=== PATIENT | male | born 1990 | race Native Hawaiian/Other Pacific Islander ===

== ENCOUNTER 2017-09-27 16:37 | Emergency (ER) | payer OTHER ==
[~2017-09-27] VITALS: Ht 165.1 cm; Wt 72.6 kg
[2017-09-27] MEDS ORDERED: IBUPROFEN TABLET 200 MG TAB PO STA (17:32)
--- NOTE | 2017-09-27 18:02 | ED Cough/URI ---
General Chief Complaint: Fever-Adult/Adol Stated Complaint: FEVER Nursing Triage Note: C/O OF FEVER AND HEADACHE FOR 1 WEEK. 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, presents for dizziness and fever. He reports an occasional dry cough. His symptoms of been present for approximately 5 days. He taken Benadryl 50 mg every 6-8 hours to assist with the fever. He also reports increased stress related to school, however he is not open to discussing that or seeking mental health services at the [facility]. Allergies and Home Medications Allergies Coded Allergies: No Known Drug Allergies (Unverified , 09/27/17) Home Medications Amoxicillin 500 Mg Capsule, 500 MG PO Q8H Prescribed by: DAMARIS WILKINS on 09/27/17 3945 Patient Home Medication List Home Medication List Reviewed: Yes Review of Systems Constitutional: see HPI, chills, fever, malaise EENTM: see HPI, ear pain Gastrointestinal: no symptoms reported, see HPI All Other Systems Reviewed Negative Unless Noted: Yes Past Qpmriwt-Iwannw-Movrld Hx Past Med/Social Hx: Reviewed Nursing Past Med/Soc Hx Patient Social History Alcohol Use: Occasionally Uses Recreational Drug Use: No Smoking Status: Current Everyday Smoker Recent Foreign Travel: No Contact w/Someone Who Travel: No Recent Infectious Disease Expo: No Past Medical History Surgeries: No Respiratory: No Cardiac: No Neurological: No Genitourinary: No Gastrointestinal: No Endocrine: No HEENT: No Cancer: No Psychosocial: No Integumentary: No Physical Exam Vital Signs Vital Signs - First Documented 09/27/17 17:10 Temp 101.3 Pulse 128 Resp 18 B/P (MAP) 136/100 (112) Pulse Ox 97 O2 Delivery Room Air Capillary Refill : Less Than 3 Seconds General Appearance: WD/WN, no apparent distress Eyes: Bilateral Eye Normal Inspection, Bilateral Eye PERRL, Bilateral Eye EOMI HEENT: PERRL/EOMI, pharynx normal, TM abnormal (R), TM abnormal (L); No pharyngeal erythema, No tonsillar exudate Neck: non-tender, full range of motion, supple, normal inspection Respiratory: chest non-tender, lungs clear, normal breath sounds Cardiovascular: normal peripheral pulses, regular rate, rhythm, no murmur Gastrointestinal: normal bowel sounds, non tender Neurologic/Psychiatric: no motor/sensory deficits, alert, normal mood/affect, oriented x 3 Skin: normal color, warm/dry Progress/Results/Core Measures Suspected Sepsis Recent Fever Within 48 Hours: Yes Infection Criteria Present: Suspected New Infection New/Unexplained Altered Menta: No Sepsis Screen: Possible Sepsis Risk SIRS Temperature:101.3 Pulse: 128 Respiratory Rate: 18 Blood Pressure 136 /100 Mean: 112 Results/Orders My Orders Orders - DAMARIS WILKINS Ibuprofen Tablet (Motrin Tablet) (09/27/17 17:32) Vital Signs/I&O 09/27/17 17:10 Temp 101.3 Pulse 128 Resp 18 B/P (MAP) 136/100 (112) Pulse Ox 97 O2 Delivery Room Air Capillary Refill : Less Than 3 Seconds Blood Pressure Mean: 112 Progress Note : Time: 17:40 Progress Note Initial evaluation completed. Discharge planning and return precautions reviewed. 1810 Temp down to 100, pulse 92. Departure Impression Primary Impression: Fever Qualified Codes: R50.9 - Fever, unspecified Additional Impressions: Otitis media Qualified Codes: H66.003 - Acute suppurative otitis media without spontaneous rupture of ear drum, bilateral URI (upper respiratory infection) Qualified Codes: J06.9 - Acute upper respiratory infection, unspecified Disposition: 01 HOME, SELF-CARE Condition: Stable Departure-Patient Inst. Decision time for Depature: 17:55 Referrals: NO,LOCAL PHYSICIAN (PCP) Primary Care Physician Patient Instructions: Cough, Runny Nose, and the Common Cold (DC), Ear Infections (Otitis Media), Fever, Adult (DC) Add. Discharge Instructions: Alternate between ibuprofen 600 mg and Tylenol 650 mg every 4 hours for pain or fever Take antibiotic as prescribed. Follow-up at [facility] [place] if your symptoms are not improving. You may take [id number] meclizine 25 mg every 8 hours for the dizziness. Increase her water intake. Return to emergency department for urgent health care needs. All discharge instructions reviewed with patient and/or family. Voiced understanding. Scripts Amoxicillin (Amoxicillin) 500 Mg Capsule 500 MG PO Q8H, #21 CAP 0 Refills Prov: DAMARIS WILKINS 09/27/17 Copy Copies To 1: DANDY BERNARD MD, AMY ARNP September 27, 2017 18:02
[2017-09-27] MEDS ORDERED: AMOX500C2 PO (18:03)
[2017-09-27 18:09] VITALS: BP 130/82
== END 2017-09-27 18:20 | disposition home or self-care (01) ==
LOC: ER 16:39
DX: H66.93 Otitis media, unspecified, bilateral (principal); J06.9 Acute upper respiratory infection, unspecified; F17.200 Nicotine dependence, unspecified, uncomplicated
CPT/HCPCS: 99283